=== PATIENT | female | born 1970 | race Caucasian/White ===

== ENCOUNTER 2020-02-20 10:12 | Emergency (ER) | payer OTHER ==
--- NOTE | 2020-02-20 10:56 | EDM.PDOC ---
ED HPI GENERAL MEDICAL PROBLEM - General Chief Complaint: General Stated Complaint: WAS OUT OF STATE HAS FEVER AND WEAKNESS Time Seen by Provider: 02/20/20 10:52 Source of Information: Reports: Patient, RN Notes Reviewed History Limitations: Reports: No Limitations - History of Present Illness INITIAL COMMENTS - FREE TEXT/NARRATIVE: 49-year-old female presents emergency department today concerned about coronavirus. She has recently returned from [place] over the last couple weeks states she feels short of breath she has not had any fevers no other symptoms other than a small amount of diarrhea - Related Data Allergies Allergy/AdvReac Type Severity Reaction Status Date / Time codeine Allergy Dizziness Verified 02/20/20 11:08 Home Meds: Home Meds NK [No Known Home Meds] 06/28/14 [History] Past Medical History - Past Surgical History HEENT Surgical History: Reports: Other (See Below) Other HEENT Surgeries/Procedures: sinus surgery Female Surgical History: Reports: Other (See Below) Other Musculoskeletal Surgeries/Procedures:: back surgery Social & Family History - Tobacco Use Smoking Status *Q: Never Smoker ED ROS GENERAL - Review of Systems Review Of Systems: See Below Constitutional: Reports: Fever (Feverish at home) HEENT: Reports: No Symptoms Respiratory: Reports: Shortness of Breath, Cough Cardiovascular: Reports: No Symptoms GI/Abdominal: Reports: Diarrhea : Reports: No Symptoms Musculoskeletal: Reports: No Symptoms ED EXAM, GENERAL - Physical Exam Exam: See Below Exam Limited By: No Limitations General Appearance: Alert, WD/WN, No Apparent Distress Ears: Normal External Exam, Normal Canal, Hearing Grossly Normal, Normal TMs Nose: Normal Inspection, Normal Mucosa, No Blood Throat/Mouth: Normal Inspection, Normal Lips, Normal Teeth, Normal Gums, Normal Oropharynx, Normal Voice, No Airway Compromise Head: Atraumatic, Normocephalic Neck: Normal Inspection, Supple, Non-Tender, Full Range of Motion Respiratory/Chest: No Respiratory Distress, Lungs Clear, Normal Breath Sounds, No Accessory Muscle Use, Chest Non-Tender Cardiovascular: Regular Rate, Rhythm, No Murmur GI/Abdominal: Soft, Non-Tender Course - Vital Signs Last Recorded V/S: Last Vital Signs Temp 98.4 F 02/20/20 10:52 Pulse 71 02/20/20 10:52 Resp 20 02/20/20 10:52 BP 124/87 02/20/20 10:52 Pulse Ox 98 02/20/20 10:52 - Orders/Labs/Meds Orders: Active Orders 24 hr Category Date Time Status Chest 1V Frontal [CR] Urgent Exams 02/20/20 10:52 Ordered Isolation [COMM] Routine Oth 02/20/20 10:53 Ordered Labs: Laboratory Tests 02/20/20 02/20/20 02/20/20 Range/Units 10:52 11:09 11:09 WBC 4.7 (4.5-11.0) K/uL RBC 4.81 (3.30-5.50) M/uL Hgb 13.9 (12.0-15.0) g/dL Hct 42.5 (36.0-48.0) % MCV 88 (80-98) fL MCH 29 (27-31) pg MCHC 33 (32-36) % Plt Count 318 (150-400) K/uL Sodium 140 (140-148) mmol/L Potassium 4.3 (3.6-5.2) mmol/L Chloride 105 (100-108) mmol/L Carbon Dioxide 28 (21-32) mmol/L Anion Gap 7.4 (5.0-14.0) mmol/L BUN 14 (7-18) mg/dL Creatinine 1.0 (0.6-1.0) mg/dL Est Cr Clr Drug Dosing 62.31 mL/min Estimated GFR (MDRD) 58 L (>60) Glucose 99 (74-106) mg/dL Lactic Acid 1.3 (0.4-2.0) mmol/L Calcium 8.7 (8.5-10.1) mg/dL Total Bilirubin 1.3 H (0.2-1.0) mg/dL AST 24 (15-37) U/L ALT 34 (12-78) U/L Alkaline Phosphatase 81 (46-116) U/L Troponin I (0.000-0.056) ng/mL C-Reactive Protein < 0.05 (0.0-0.3) mg/dL Total Protein 6.9 (6.4-8.2) g/dL Albumin 3.7 (3.4-5.0) g/dL Globulin 3.2 (2.3-3.5) g/dL Albumin/Globulin Ratio 1.2 (1.2-2.2) 02/20/20 Range/Units 11:09 WBC (4.5-11.0) K/uL RBC (3.30-5.50) M/uL Hgb (12.0-15.0) g/dL Hct (36.0-48.0) % MCV (80-98) fL MCH (27-31) pg MCHC (32-36) % Plt Count (150-400) K/uL Sodium (140-148) mmol/L Potassium (3.6-5.2) mmol/L Chloride (100-108) mmol/L Carbon Dioxide (21-32) mmol/L Anion Gap (5.0-14.0) mmol/L BUN (7-18) mg/dL Creatinine (0.6-1.0) mg/dL Est Cr Clr Drug Dosing mL/min Estimated GFR (MDRD) (>60) Glucose (74-106) mg/dL Lactic Acid (0.4-2.0) mmol/L Calcium (8.5-10.1) mg/dL Total Bilirubin (0.2-1.0) mg/dL AST (15-37) U/L ALT (12-78) U/L Alkaline Phosphatase (46-116) U/L Troponin I < 0.017 (0.000-0.056) ng/mL C-Reactive Protein (0.0-0.3) mg/dL Total Protein (6.4-8.2) g/dL Albumin (3.4-5.0) g/dL Globulin (2.3-3.5) g/dL Albumin/Globulin Ratio (1.2-2.2) Departure - Departure Time of Disposition: 11:41 Disposition: Home, Self-Care 01 Condition: Fair Clinical Impression: Viral syndrome - Discharge Information Instructions: Viral Respiratory Infection, [id number] Referrals: PCP,None [Primary Care Provider] - Forms: ED Department Discharge Additional Instructions: Treat with symptomatic care Tylenol or Motrin as needed for fevers, continue to push fluids recommend 14-day self quarantine, call your primary care as needed Sepsis Event Note - Focused Exam Vital Signs: Vital Signs Temp Pulse Resp BP Pulse Ox 02/20/20 10:52 98.4 F 71 20 124/87 98 Date Exam was Performed: 02/20/20 Time Exam was Performed: 11:38 - My Orders Last 24 Hours: My Active Orders 02/20/20 10:52 Chest 1V Frontal [CR] Urgent 02/20/20 10:53 Isolation [COMM] Routine - Assessment/Plan Last 24 Hours: My Active Orders 02/20/20 10:52 Chest 1V Frontal [CR] Urgent 02/20/20 10:53 Isolation [COMM] Routine Plan: Assessment Acuity = acute Site and laterality = viral syndrome Etiology = unknown Manifestations = none Location of injury = Home Lab values = CBC, CMP within normal limits bilirubin slightly elevated 1.3 consistent hyperbilirubinemia, influenza a and B both negative, CRP nonreactive lactic acid within normal limits and troponin negative Plan Follow-up with your primary care as needed recommend 14-day self quarantine This note was dictated using [employer] voice recognition software please call with any questions on syntax or grammar.
--- NOTE | 2020-02-22 09:00 | CR ---
CHEST: Portable 02/20/2020 at 11:30 CLINICAL HISTORY:SOB COMPARISON:2013 FINDINGS: Heart size and pulmonary vascular are normal. No infiltrate is identified. There are scattered small calcifications in the right lung which appear to be granulomatous. This is new since prior study. No effusion is seen Impression: No acute cardiopulmonary process Interval granulomatous exposure.
== END 2020-02-20 11:59 | disposition home or self-care (01) ==
LOC: JP.ED 10:12
DX: B34.9 Viral infection, unspecified (principal); Z88.5 Allergy status to narcotic agent; Z03.818 Encounter for observation for suspected exposure to other biological agents ruled out
CPT/HCPCS: 36415; 71045; 71045-26; 80053; 83605; 84484; 85027; 86140; 87804; 87804-59; 99285-25